=== PATIENT | female | born 1960 | race Two or more races ===

== ENCOUNTER 2018-03-31 20:42 | Emergency (ER) | payer OTHER ==
[2018-03-31] MEDS ORDERED: Sodium Chloride 0.9% 1,000 ML IV ONE (23:13)
[2018-03-31] MEDS ORDERED: Ondansetron 4 MG/2 ML SDV IVPUSH ONE (23:13)
--- NOTE | 2018-03-31 23:22 | EDM.PDOC ---
ED HPI GENERAL MEDICAL PROBLEM - General Chief Complaint: Gastrointestinal Problem Stated Complaint: VOMITTING/UPSET STOMACH Time Seen by Provider: 03/31/18 22:35 Source of Information: Reports: Patient History Limitations: Reports: No Limitations - History of Present Illness INITIAL COMMENTS - FREE TEXT/NARRATIVE: The patient states that she developed nausea and emesis around 14:00 this afternoon. Her most recent episode was around 19:30 this evening. No associated diarrhea. The patient reports central abdominal pain, only when she vomits. No recent fever. No recent urinary symptoms. No prior similar symptoms. The patient states that none of her close contacts is similarly ill. She states that she ate some macaroni this morning that had been left out overnight. No recent antibiotic. No recent travel. The patient is diabetic. She ordinarily checks her blood sugars 3 times a day, with normal Accu-Checks being 175-258. This morning's Accu-Check was 173, and 217 at 19:30 this evening. The patient's PCP is Kayce Preston. Abdominal Pain Score (Numeric/FACES): 4 - Related Data Allergies Allergy/AdvReac Type Severity Reaction Status Date / Time No Known Allergies Allergy Verified 03/31/18 23:16 Past Medical History Cardiovascular History: Reports: High Cholesterol, Hypertension Gastrointestinal History: Reports: GERD (untreated) Musculoskeletal History: Reports: Arthritis Neurological History: Reports: Neuropathy, Diabetic Endocrine/Metabolic History: Reports: Diabetes, Type II, Hyperthyroidism, Obesity/BMI 30+ - Past Surgical History HEENT Surgical History: Reports: Oral Surgery ([place] teeth extraction) GI Surgical History: Reports: Appendectomy, Cholecystectomy Social & Family History - Tobacco Use Smoking Status *Q: Current Some Day Smoker - Alcohol Use Alcohol Use History: No - Recreational Drug Use Recreational Drug Use: No - Living Situation & Occupation Living situation: Reports: , with Family (daughter + grandson + her daughter's boyfriend). 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 ED EXAM, GI/ABD - Physical Exam Exam: See Below Exam Limited By: No Limitations General Appearance: Alert, WD/WN, No Apparent Distress Eyes: Bilateral: Normal Appearance, EOMI Ears: Normal External Exam, Hearing Grossly Normal Nose: Normal Inspection, No Blood Throat/Mouth: Normal Inspection, Normal Lips, Normal Voice, No Airway Compromise Head: Atraumatic, Normocephalic Neck: Normal Inspection, Full Range of Motion Respiratory/Chest: No Respiratory Distress, Lungs Clear, Normal Breath Sounds, No Accessory Muscle Use Cardiovascular: Normal Peripheral Pulses, Regular Rate, Rhythm, No Gallop, No JVD, No Murmur, No Rub GI/Abdominal Exam: Normal Bowel Sounds, Soft, No Organomegaly, No Distention, No Abnormal Bruit, No Mass, Tender (Epigastric region only. Essentially nontender elsewhere.), Other (Obese) (Female) Exam: Deferred Rectal (Female) Exam: Deferred Back Exam: Normal Inspection, Full Range of Motion, NT Extremities: Normal Inspection, Normal Range of Motion, No Pedal Edema, Normal Capillary Refill Neurological: Alert, Oriented, Normal Cognition, No Motor/Sensory Deficits Psychiatric: Normal Affect Skin Exam: Warm, Dry, Intact, Normal Color, No Rash Course - Vital Signs Last Recorded V/S: Last Vital Signs Temp 36.9 C 03/31/18 21:07 Pulse 88 03/31/18 21:07 Resp 18 03/31/18 21:07 BP 139/72 03/31/18 21:07 Pulse Ox 98 03/31/18 21:07 - Orders/Labs/Meds Orders: Active Orders 24 hr Category Date Time Status Accu Check [Blood Glucose Check, Bedside] [RC] ONETIME Care 03/31/18 22:38 Active Abdomen Pelvis w Cont [CT] Stat Exams 04/01/18 01:03 Taken UA W/MICROSCOPIC [URIN] Stat Lab 03/31/18 23:25 Ordered Sodium Chloride 0.9% [Normal Saline] 1,000 ml Med 04/01/18 05:00 Active IV ASDIRECTED Medication Orders Sodium Chloride (Normal Saline) 1,000 mls @ 100 mls/hr IV ASDIRECTED CLAUDIA Last Admin: 04/01/18 05:13 Dose: 100 mls/hr Labs: Laboratory Tests 03/31/18 03/31/18 03/31/18 Range/Units 23:14 23:25 23:35 WBC 10.56 H (3.98-10.04) K/mm3 RBC 4.24 (3.98-5.22) M/mm3 Hgb 13.1 (11.2-15.7) gm/L Hct 39.1 (34.1-44.9) % MCV 92.2 (79.4-94.8) fl MCH 30.9 (25.6-32.2) pg MCHC 33.5 (32.2-35.5) g/dl RDW Std Deviation 42.3 (36.4-46.3) fL Plt Count 204 (182-369) K/mm3 MPV 11.1 (9.4-12.3) fl Neutrophils % (Manual) 74 H (40-60) % Band Neutrophils % 0 (0-10) % Lymphocytes % (Manual) 20 (20-40) % Atypical Lymphs % 0 % Monocytes % (Manual) 5 (2-10) % Eosinophils % (Manual) 0 L (0.7-5.8) % Basophils % (Manual) 1 (0.1-1.2) Platelet Estimate Adequate RBC Morph Comment Normal Sodium (136-145) mEq/L Potassium (3.5-5.1) mEq/L Chloride (98-107) mEq/L Carbon Dioxide (21-32) mEq/L Anion Gap (5-15) BUN (7-18) mg/dL Creatinine (0.55-1.02) mg/dL Est Cr Clr Drug Dosing mL/min Estimated GFR (MDRD) (>60) mL/min BUN/Creatinine Ratio (14-18) Glucose (74-106) mg/dL POC Glucose 229 H (70-105) mg/dL Calcium (8.5-10.1) mg/dL Magnesium (1.8-2.4) mg/dl Total Bilirubin (0.2-1.0) mg/dL AST (15-37) U/L ALT (14-59) U/L Alkaline Phosphatase (46-116) U/L Total Protein (6.4-8.2) g/dl Albumin (3.4-5.0) g/dl Globulin gm/dL Albumin/Globulin Ratio (1-2) Lipase (73-393) U/L Urine Color Yellow (Yellow) Urine Appearance Clear (Clear) Urine pH 7.0 (5.0-8.0) Ur Specific [place] 1.020 (1.005-1.030) Urine Protein Negative (Negative) Urine Glucose (UA) Negative (Negative) Urine Ketones Negative (Negative) Urine Occult Blood Negative (Negative) Urine Nitrite Negative (Negative) Urine Bilirubin Negative (Negative) Urine Urobilinogen 0.2 (0.2-1.0) Ur Leukocyte Esterase Negative (Negative) Urine RBC 0-5 (0-5) /hpf Urine WBC 0-5 (0-5) /hpf Ur Epithelial Cells 0-5 (0-5) /hpf Urine Bacteria Occasional (FEW) /hpf Urine Mucus Not seen (FEW) /hpf 03/31/18 Range/Units 23:35 WBC (3.98-10.04) K/mm3 RBC (3.98-5.22) M/mm3 Hgb (11.2-15.7) gm/L Hct (34.1-44.9) % MCV (79.4-94.8) fl MCH (25.6-32.2) pg MCHC (32.2-35.5) g/dl RDW Std Deviation (36.4-46.3) fL Plt Count (182-369) K/mm3 MPV (9.4-12.3) fl Neutrophils % (Manual) (40-60) % Band Neutrophils % (0-10) % Lymphocytes % (Manual) (20-40) % Atypical Lymphs % % Monocytes % (Manual) (2-10) % Eosinophils % (Manual) (0.7-5.8) % Basophils % (Manual) (0.1-1.2) Platelet Estimate RBC Morph Comment Sodium 140 (136-145) mEq/L Potassium 4.0 (3.5-5.1) mEq/L Chloride 106 (98-107) mEq/L Carbon Dioxide 26 (21-32) mEq/L Anion Gap 12.0 (5-15) BUN 12 (7-18) mg/dL Creatinine 0.7 (0.55-1.02) mg/dL Est Cr Clr Drug Dosing 78.83 mL/min Estimated GFR (MDRD) > 60 (>60) mL/min BUN/Creatinine Ratio 17.1 (14-18) Glucose 228 H (74-106) mg/dL POC Glucose (70-105) mg/dL Calcium 8.9 (8.5-10.1) mg/dL Magnesium 1.6 L (1.8-2.4) mg/dl Total Bilirubin 2.2 H (0.2-1.0) mg/dL AST 172 H (15-37) U/L ALT 115 H (14-59) U/L Alkaline Phosphatase 192 H (46-116) U/L Total Protein 7.6 (6.4-8.2) g/dl Albumin 2.7 L (3.4-5.0) g/dl Globulin 4.9 gm/dL Albumin/Globulin Ratio 0.6 L (1-2) Lipase 44065 H (73-393) U/L Urine Color (Yellow) Urine Appearance (Clear) Urine pH (5.0-8.0) Ur Specific [place] (1.005-1.030) Urine Protein (Negative) Urine Glucose (UA) (Negative) Urine Ketones (Negative) Urine Occult Blood (Negative) Urine Nitrite (Negative) Urine Bilirubin (Negative) Urine Urobilinogen (0.2-1.0) Ur Leukocyte Esterase (Negative) Urine RBC (0-5) /hpf Urine WBC (0-5) /hpf Ur Epithelial Cells (0-5) /hpf Urine Bacteria (FEW) /hpf Urine Mucus (FEW) /hpf Meds: Medications Generic Name Dose Route Start Last Admin Trade Name Festus PRN Reason Stop Dose Admin Sodium Chloride 1,000 mls @ 100 mls/hr 04/01/18 05:00 04/01/18 05:13 Normal Saline IV 100 mls/hr ASDIRECTED CLAUDIA Administration Discontinued Medications Generic Name Dose Route Start Last Admin Trade Name Festus PRN Reason Stop Dose Admin Diatrizoate Meglum/Diatrizoate Sod 90 ml 04/01/18 02:27 04/01/18 02:47 Gastrografin 37% PO 04/01/18 02:28 90 ml ONETIME ONE Administration Sodium Chloride 1,000 mls @ 999 mls/hr 03/31/18 23:13 03/31/18 23:37 Normal Saline IV 04/01/18 00:13 999 mls/hr ONETIME ONE Administration Magnesium Sulfate 2 gm/ Premix 50 mls @ 50 mls/hr 04/01/18 00:37 04/01/18 00: 42 IV 04/01/18 01:36 50 mls/hr ONETIME ONE Administration Iopamidol 125 ml 04/01/18 02:27 04/01/18 02:47 Isovue-300 (61%) IVPUSH 04/01/18 02:28 125 ml ONETIME ONE Administration Ondansetron HCl 4 mg 03/31/18 23:13 03/31/18 23:40 Zofran IVPUSH 03/31/18 23:14 4 mg ONETIME ONE Administration - Re-Assessments/Exams Free Text/Narrative Re-Assessment/Exam: 03/31/18 23:21 In addition to blood work, a urinalysis by straight catheter was ordered. I explained to the patient that straight catheterization was necessary in order to be able to collect a clean sample that I could interpret tonight. I explained that despite the patient not having urinary symptoms, diabetes can mask urinary symptoms, and that a UTI is a known cause of emesis, and therefore needs to be ruled out. The patient is morbidly obese and will not realistically be able to provide a clean catch urine sample. I was just notified by Ivis GOLDSTEIN that the patient is refusing straight catheterization. 04/01/18 01:04 Notified by Isabel GOLDSTEIN that she was notified by the lab that the patient's lipase is high, and requires dilution before the value can be obtained. I have ordered a CT of the abdomen and pelvis with oral and IV contrast to evaluate for pancreatitis. 04/01/18 02:49 The patient's lipase has returned as substantially elevated at 34,532. CT scan of the abdomen and pelvis is still pending. 04/01/18 03:37 CT of the abdomen and pelvis with oral and IV contrast is read by [facility] as: Acute pancreatitis changes noted mild peripancreatic phlegmon [sic] Status post cholecystectomy. No evidence for biliary ductal dilatation or choledocholithiasis Abnormal lymphadenopathy in the gerda hepatis as well as gastrohepatic node region Large complex pelvic cystic structure measuring 14 x 10 cm consistent with a complex right ovarian cyst. Ovarian neoplastic cyst should be considered. Correlation with CEA as well as CEA 125 levels is suggested 04/01/18 04:01 Test results discussed with the patient and her daughter. The patient states that she is aware that she has ovarian cyst, that she has had them twice before. I am concerned, however, about the abnormal lymphadenopathy reported on the CT scan. I am recommending that the patient be admitted for treatment of pancreatitis, and while admitted, further evaluate the ovarian mass with an ultrasound as well as CEA markers. The patient is agreeable. Case then discussed with Dr. Jama at 03:50. She is concerned that the phlegmon may require surgical attention. She agrees to admit the patient, if Dr. Franco is willing to be on surgical consult. Case then discussed with Dr. Franco at 03:54. He does not feel that surgery is necessary with this patient, however, because of the patient's comorbidities, he recommends transfer. 04/01/18 04:08 The above was discussed with the patient. She would prefer [facility]. 04/01/18 04:25 [facility] was contacted at 04:08. Unfortunately, their Med-Surg unit is completely full. Case discussed with [facility] at 04:12. Case then discussed with Dr. Guillermo, Hospitalist at [facility], at 04 :19. Like Dr. Franco, he does not see an indication for surgical intervention , and if no surgical intervention is required, he does not see why the patient' s pancreatitis cannot be managed like any other case of pancreatitis, here in [place]. He therefore declined to accept the patient. 04/01/18 04:[address] Jama at 04:26. She is concerned about the size of the ovarian cyst, and what might happen to the patient if it were to rupture. She feels strongly that the patient is not safe at this facility and recommends transfer. 04/01/18 04:41 Case discussed with [facility] at 04:38. Case then discussed with Dr. Guillermo at 04:40. He accepts the patient for transfer. The patient will be transferred by ground ambulance. Departure - Departure Time of Disposition: 04:43 Disposition: DC/Tfer to [facility] 02 Condition: Fair Clinical Impression: Pancreatitis, Hypomagnesemia, Ovarian mass, right, Abdominal lymphadenopathy, Hyperglycemia due to type 2 diabetes mellitus - Discharge Information - My Orders Last 24 Hours: My Active Orders 03/31/18 22:38 Accu Check [Blood Glucose Check, Bedside] [RC] ONETIME 03/31/18 23:25 UA W/MICROSCOPIC [URIN] Stat 04/01/18 01:03 Abdomen Pelvis w Cont [CT] Stat 04/01/18 05:00 Sodium Chloride 0.9% [Normal Saline] 1,000 ml IV ASDIRECTED - Assessment/Plan Last 24 Hours: My Active Orders 03/31/18 22:38 Accu Check [Blood Glucose Check, Bedside] [RC] ONETIME 03/31/18 23:25 UA W/MICROSCOPIC [URIN] Stat 04/01/18 01:03 Abdomen Pelvis w Cont [CT] Stat 04/01/18 05:00 Sodium Chloride 0.9% [Normal Saline] 1,000 ml IV ASDIRECTED
[2018-04-01] MEDS ORDERED: Magnesium Sulfate/Water 2 GM in Premix Bag 1 BAG IV ONE (00:37)
[2018-04-01] MEDS ORDERED: Diatrizoate Meglumine/Diatrizoate Sodium 37% 120 ML Bottle PO ONE (02:27)
[2018-04-01] MEDS ORDERED: Iopamidol 612 MG/ML 150 ML Bottle IVPUSH ONE (02:27)
[2018-04-01] MEDS ORDERED: Sodium Chloride 0.9% 1,000 ML IV SCH (05:00)
--- NOTE | 2018-04-01 11:42 | CT ---
CT abdomen and pelvis Technique: Multiple axial sections were obtained from above the dome of the diaphragm inferiorly through the pubic symphysis. Intravenous and oral contrast was utilized. Comparison: No prior studies available. Findings: Visualized lung bases show nothing acute. Liver shows no focal parenchymal abnormality. Spleen appears within normal limits. Adrenal glands show no nodule. Mild inflammatory change seen around the pancreas. Kidneys show symmetric contrast enhancement without hydronephrosis or mass. Aorta shows no aneurysmal dilatation. Several slightly prominent lymph nodes are seen near the gerad hepatis. Lymph node measures approximately 1.9 cm. No retroperitoneal adenopathy is seen. Fat-containing anterior abdominal wall hernia is noted. Complicated cystic structure seen within the pelvis measuring up to 13.4 cm. No free fluid is seen. Bone window setting show slight degenerative change within the spine. Delayed images show contrast within the ureters and bladder. Impression: 1. Mild inflammatory change around the pancreas. This is compatible with pancreatitis. 2. Several slightly prominent lymph nodes within the gerda hepatis, possibly enlarged from the pancreatitis. 3. Complicated cystic structure within the pelvis measuring up to 13.4 cm. This could represent a benign or malignant ovarian cyst. 4. No ascites is seen. Other incidental findings as noted above. Diagnostic code #9 I agree with preliminary report from [facility], finalized at 04/01/18, 4:29 AM Central Time
== END 2018-04-01 06:02 ==
LOC: JD.ED 20:42 → MERGE 20:42 → JD.ED 04-01 06:02
DX: K85.90 Acute pancreatitis without necrosis or infection, unspecified (principal); E11.65 Type 2 diabetes mellitus with hyperglycemia; E83.42 Hypomagnesemia; N83.9 Noninflammatory disorder of ovary, fallopian tube and broad ligament, unspecified; R59.1 Generalized enlarged lymph nodes; I10 Essential (primary) hypertension; E72.00 Disorders of amino-acid transport, unspecified; E03.9 Hypothyroidism, unspecified; F17.200 Nicotine dependence, unspecified, uncomplicated
CPT/HCPCS: 36415; 74177; 80053; 81001; 82962; 83690; 83735; 85025; 96361; 96365; 96375; 99285; J2405; J7040; Q9963; Q9967; 99284; J3475

== ENCOUNTER 2018-06-12 02:21 | Emergency (ER) | payer MEDICAID ==
--- NOTE | 2018-06-12 02:57 | EDM.PDOC ---
<Alyssa Mayberry - Last Filed: 06/12/18 05:46> ED HPI GENERAL MEDICAL PROBLEM - General Chief Complaint: Abdominal Pain Stated Complaint: ABDOMINAL PAIN Time Seen by Provider: 06/12/18 02:35 Source of Information: Reports: Patient History Limitations: Reports: No Limitations - History of Present Illness INITIAL COMMENTS - FREE TEXT/NARRATIVE: Patient is a 58-year-old female presents to emergency department complaining of right lower quadrant pain. Patient states she has a known history of ovarian mass on the right lower side that is large. She states though she's never had pain with that it was a incidental finding on the CT that she had previously for right upper quadrant and epigastric pain. So since the discovery of the mass she has had partial workup she is in the middle of having testing to complete a pre-surgical approval. Patient states this is the actual first time she's had pain in that area. She has no vaginal bleeding no hematuria. She does state that when she urinates she does not have complete emptying of her bladder. And takes a long time for her to go and stop and then go again. Onset: Sudden Duration: Hour(s): (Discomfort started around 9 to 11:00. By the time she arrived to the emergency department much the pain had gone.) Location: Reports: Abdomen Quality: Reports: Ache, Stabbing, Throbbing Severity: Moderate Improves with: Reports: Medication Worsens with: Reports: Movement Context: Reports: Other (See history of present illness) Associated Symptoms: Reports: No Other Symptoms. Denies: Malaise, Nausea/ Vomiting, Shortness of Breath Right Lower Abdomen Pain Score (Numeric/FACES): 4 - Related Data Allergies Allergy/AdvReac Type Severity Reaction Status Date / Time No Known Allergies Allergy Verified 03/31/18 23:16 Home Meds: Home Meds Calcium Carbonate/Vitamin D3 [Calcium 600 + Vit D 400 Softgl] 1 tab PO BID 06/12 [History] Cinnamon Bark [Cinnamon] 500 mg PO BID 06/12/18 [History] Cyanocobalamin (Vitamin B-12) [B-12] 1,000 mcg PO DAILY 06/12/18 [History] Ibuprofen [Motrin] 600 mg PO TID PRN 06/12/18 [History] Insulin Aspart [NovoLOG] 3 - 11 unit SQ ASDIRECTED 06/12/18 [History] Insulin Glargine,Hum.Rec.Anlog [Lantus Solostar] 30 unit SQ BID 06/12/18 [ History] Losartan [Cozaar] 50 mg PO DAILY 06/12/18 [History] Magnesium Oxide 800 mg PO DAILY 06/12/18 [History] Methimazole [Tapazole] 10 mg PO BID 06/12/18 [History] Pantoprazole Sodium [Protonix] 40 mg PO DAILY 06/12/18 [History] Propranolol [Inderal] 40 mg PO BID 06/12/18 [History] metFORMIN [Glucophage] 1,000 mg PO BID 06/12/18 [History] Past Medical History Cardiovascular History: Reports: High Cholesterol, Hypertension Gastrointestinal History: Reports: GERD Musculoskeletal History: Reports: Arthritis Neurological History: Reports: Neuropathy, Diabetic Endocrine/Metabolic History: Reports: Diabetes, Type II, Hyperthyroidism, Obesity/BMI 30+ - Past Surgical History HEENT Surgical History: Reports: Oral Surgery GI Surgical History: Reports: Appendectomy, Cholecystectomy Social & Family History - Family History Family Medical History: Noncontributory - Tobacco Use Smoking Status *Q: Current Some Day Smoker Years of Tobacco use: 15 Packs/Tins Daily: 0.1 - Caffeine Use Caffeine Use: Reports: Coffee, Tea - Recreational Drug Use Recreational Drug Use: No - Living Situation & Occupation Living situation: Reports: with Family, 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 Denies: Black Stool, Bloody Stool, Constipation, Diarrhea, Distension, Hematemesis, Hematochezia : Reports: Dysuria, Urinary Retention Musculoskeletal: Reports: No Symptoms Skin: Reports: No Symptoms Neurological: Reports: No Symptoms Psychiatric: Reports: No Symptoms Hematologic/Lymphatic: Reports: No Symptoms Immunologic: Reports: No Symptoms ED EXAM, GENERAL - Physical Exam Exam: See Below Exam Limited By: No Limitations General Appearance: Alert, WD/WN, No Apparent Distress Eye Exam: Bilateral Eye: EOMI, PERRL Ears: Normal External Exam, Normal Canal, Hearing Grossly Normal, Normal TMs Nose: Normal Inspection, Normal Mucosa, No Blood Throat/Mouth: Normal Inspection, Normal Lips, Normal Teeth, Normal Gums, Normal Oropharynx, Normal Voice, No Airway Compromise Head: Atraumatic, Normocephalic Neck: Normal Inspection, Supple, Non-Tender, Full Range of Motion Respiratory/Chest: No Respiratory Distress, Lungs Clear, Normal Breath Sounds, No Accessory Muscle Use, Chest Non-Tender Cardiovascular: Normal Peripheral Pulses, Regular Rate, Rhythm, No Edema, No Murmur, No Rub GI/Abdominal: Normal Bowel Sounds, Soft, Rebound, Tender, Abnormal Bowel Sounds. No: Guarding, Rigid Back Exam: Normal Inspection, Full Range of Motion, NT Extremities: Normal Inspection, Normal Range of Motion, Non-Tender, Normal Capillary Refill, No Pedal Edema Neurological: Alert, Oriented, CN II-XII Intact, Normal Cognition Psychiatric: Normal Affect, Normal Mood Skin Exam: Warm, Dry, Intact, Normal Color, No Rash Course - Vital Signs Last Recorded V/S: Last Vital Signs Temp 35.8 C 06/12/18 02:26 Pulse 64 06/12/18 02:26 Resp 16 06/12/18 02:26 BP 139/77 06/12/18 02:26 Pulse Ox 95 06/12/18 02:26 - Orders/Labs/Meds Orders: Active Orders 24 hr Category Date Time Status CULTURE URINE [RM] Stat Lab 06/12/18 03:13 Ordered Labs: Laboratory Tests 06/12/18 06/12/18 06/12/18 Range/Units 03:13 03:20 03:20 WBC 10.58 H (3.98-10.04) K/mm3 RBC 4.26 (3.98-5.22) M/mm3 Hgb 13.3 (11.2-15.7) gm/L Hct 39.0 (34.1-44.9) % MCV 91.5 (79.4-94.8) fl MCH 31.2 (25.6-32.2) pg MCHC 34.1 (32.2-35.5) g/dl RDW Std Deviation 40.2 (36.4-46.3) fL Plt Count 209 (182-369) K/mm3 MPV 10.7 (9.4-12.3) fl Neut % (Auto) 57.4 (34.0-71.1) % Lymph % (Auto) 31.5 (19.3-51.7) % Banks % (Auto) 8.2 (4.7-12.5) % Eos % (Auto) 2.3 (0.7-5.8) Baso % (Auto) 0.5 (0.1-1.2) % Neut # (Auto) 6.08 (1.56-6.13) K/mm3 Lymph # (Auto) 3.33 (1.18-3.74) K/mm3 Banks # (Auto) 0.87 H (0.24-0.36) K/mm3 Eos # (Auto) 0.24 (0.04-0.36) K/mm3 Baso # (Auto) 0.05 (0.01-0.08) K/mm3 Sodium 136 (136-145) mEq/L Potassium 4.2 (3.5-5.1) mEq/L Chloride 101 (98-107) mEq/L Carbon Dioxide 28 (21-32) mEq/L Anion Gap 11.2 (5-15) BUN 17 (7-18) mg/dL Creatinine 0.8 (0.55-1.02) mg/dL Est Cr Clr Drug Dosing 68.13 mL/min Estimated GFR (MDRD) > 60 (>60) mL/min BUN/Creatinine Ratio 21.3 H (14-18) Glucose 212 H (74-106) mg/dL Calcium 9.2 (8.5-10.1) mg/dL Total Bilirubin 0.6 (0.2-1.0) mg/dL AST 53 H (15-37) U/L ALT 60 H (14-59) U/L Alkaline Phosphatase 149 H (46-116) U/L Total Protein 8.1 (6.4-8.2) g/dl Albumin 3.0 L (3.4-5.0) g/dl Globulin 5.1 gm/dL Albumin/Globulin Ratio 0.6 L (1-2) Lipase (73-393) U/L Urine Color Yellow (Yellow) Urine Appearance Clear (Clear) Urine pH 6.5 (5.0-8.0) Ur Specific [place] 1.025 (1.005-1.030) Urine Protein Negative (Negative) Urine Glucose (UA) Trace H (Negative) Urine Ketones Negative (Negative) Urine Occult Blood Negative (Negative) Urine Nitrite Negative (Negative) Urine Bilirubin Negative (Negative) Urine Urobilinogen 1.0 (0.2-1.0) Ur Leukocyte Esterase Negative (Negative) Urine RBC 0-5 (0-5) /hpf Urine WBC 0-5 (0-5) /hpf Ur Epithelial Cells 0-5 (0-5) /hpf Urine Bacteria Occasional (FEW) /hpf Urine Mucus Few (FEW) /hpf 06/12/ Range/Units 03:20 WBC (3.98-10.04) K/mm3 RBC (3.98-5.22) M/mm3 Hgb (11.2-15.7) gm/L Hct (34.1-44.9) % MCV (79.4-94.8) fl MCH (25.6-32.2) pg MCHC (32.2-35.5) g/dl RDW Std Deviation (36.4-46.3) fL Plt Count (182-369) K/mm3 MPV (9.4-12.3) fl Neut % (Auto) (34.0-71.1) % Lymph % (Auto) (19.3-51.7) % Banks % (Auto) (4.7-12.5) % Eos % (Auto) (0.7-5.8) Baso % (Auto) (0.1-1.2) % Neut # (Auto) (1.56-6.13) K/mm3 Lymph # (Auto) (1.18-3.74) K/mm3 Banks # (Auto) (0.24-0.36) K/mm3 Eos # (Auto) (0.04-0.36) K/mm3 Baso # (Auto) (0.01-0.08) K/mm3 Sodium (136-145) mEq/L Potassium (3.5-5.1) mEq/L Chloride (98-107) mEq/L Carbon Dioxide (21-32) mEq/L Anion Gap (5-15) BUN (7-18) mg/dL Creatinine (0.55-1.02) mg/dL Est Cr Clr Drug Dosing mL/min Estimated GFR (MDRD) (>60) mL/min BUN/Creatinine Ratio (14-18) Glucose (74-106) mg/dL Calcium (8.5-10.1) mg/dL Total Bilirubin (0.2-1.0) mg/dL AST (15-37) U/L ALT (14-59) U/L Alkaline Phosphatase (46-116) U/L Total Protein (6.4-8.2) g/dl Albumin (3.4-5.0) g/dl Globulin gm/dL Albumin/Globulin Ratio (1-2) Lipase 133 (73-393) U/L Urine Color (Yellow) Urine Appearance (Clear) Urine pH (5.0-8.0) Ur Specific [place] (1.005-1.030) Urine Protein (Negative) Urine Glucose (UA) (Negative) Urine Ketones (Negative) Urine Occult Blood (Negative) Urine Nitrite (Negative) Urine Bilirubin (Negative) Urine Urobilinogen (0.2-1.0) Ur Leukocyte Esterase (Negative) Urine RBC (0-5) /hpf Urine WBC (0-5) /hpf Ur Epithelial Cells (0-5) /hpf Urine Bacteria (FEW) /hpf Urine Mucus (FEW) /hpf Meds: Medications Discontinued Medications Generic Name Dose Route Start Last Admin Trade Name Freq PRN Reason Stop Dose Admin Diatrizoate Meglum/Diatrizoate Sod 90 ml 06/12/18 05:36 06/12/18 05:54 Gastrografin 37% PO 06/12/18 05:37 90 ml ONETIME ONE Administration Sodium Chloride 500 mls @ 500 mls/hr 06/12/18 03:06 06/12/18 03:24 Normal Saline IV 06/12/18 04:05 500 mls/hr .BOLUS ONE Administration Sodium Chloride 500 mls @ 500 mls/hr 06/12/18 04:09 06/12/18 04:26 Normal Saline IV 06/12/18 05:08 500 mls/hr .BOLUS ONE Administration Iopamidol 125 ml 06/12/18 05:36 06/12/18 05:54 Isovue-300 (61%) IVPUSH 06/12/18 05:37 125 ml ONETIME ONE Administration Departure - Departure Disposition: Home, Self-Care 01 Condition: Good Clinical Impression: Ovarian mass, right Abdominal pain Qualifiers: Abdominal location: right lower quadrant Qualified Code(s): R10.31 - Right lower quadrant pain - Discharge Information Referrals: Darlene Preston NP [Primary Care Provider] - Forms: ED Department Discharge Additional Instructions: You were seen in the emergency room for lower right abdominal pain. Workup in the ER included blood work, urinalysis, and a CT scan of your abdomen and pelvis. Your bloodwork found your blood sugar to be elevated at 212, but was otherwise unremarkable. Your urinalysis was normal. You do not have a urinary tract infection. The CT scan of your abdomen and pelvis redemonstrated the mass in your lower right abdomen, unchanged. You already have a plan in place for surgical removal of the mass by Dr. Braden, but you first have to undergo a MRI, echocardiogram, and stress test on , 06/18/2018. Nothing in today's workup recommends that you deviate from that plan. Continue with those studies, as previously ordered. If any other problems, please do not hesitate to return to the ER. <Brad Branch - Last Filed: 06/12/18 10:11> Course - Re-Assessments/Exams Free Text/Narrative Re-Assessment/Exam: 06/12/18 09:07 CT of the abdomen and pelvis with oral and IV contrast is read by [facility] as: 1. Similar appearance of lobulated or 2 adjacent pelvic cysts as compared with , largest on the component measuring up to 11 cm. Stability over this time does not confirm benignity, however. 2. Persistent mild scattered colonic diverticulosis without evidence for diverticulitis. 3. Similar fatty, potentially cirrhotic liver with mild splenomegaly. 4. Additional similar findings as described. 06/12/18 09:48 The patient's lipase is normal at 133. As she does not have a pain profile consistent with pancreatitis, and her lipase is not 3 times or above the upper limit of normal, the patient does not meet diagnostic criteria for pancreatitis , even if the CT scan of her abdomen and pelvis suggests such. 06/12/18 10:01 CT of the abdomen and pelvis with oral and IV contrast is read by Dr. Hale as: 1. Reflux of contrast into the distal esophagus. 2. Other incidental findings. Nothing acute is seen. 3. Prior study showed changes of pancreatitis which are no longer seen. 4. Stable complicated cysts within the pelvis with differential as previously described. 5. Other incidental findings. The above test results were discussed with the patient. The patient states that the right lower quadrant mass was initially discovered in 2012. She states that she saw the [facility] Dr. Hernandez, she believes, in March, and that the patient was to then follow-up with Dr. Braden in order to have surgical excision of the mass. Prior to that, however, the patient is scheduled for a MRI, echocardiogram, and stress test this coming , 06/18/2018, in preparation for surgery. I do not see any findings on today's workup to recommend deviation from that plan. I will discharge the patient home. Departure - Departure Time of Disposition: 10:04 Condition: Good - Discharge Information *PRESCRIPTION DRUG MONITORING PROGRAM REVIEWED*: Not Applicable *COPY OF PRESCRIPTION DRUG MONITORING REPORT IN PATIENT AN: Not Applicable
[2018-06-12] MEDS ORDERED: Sodium Chloride 0.9% 500 ML IV ONE ×2 (03:06→04:09)
[2018-06-12] MEDS ORDERED: Iopamidol 612 MG/ML 150 ML Bottle IVPUSH ONE (05:36)
[2018-06-12] MEDS ORDERED: Diatrizoate Meglumine/Diatrizoate Sodium 37% 120 ML Bottle PO ONE (05:36)
--- NOTE | 2018-06-12 09:57 | CT ---
CT abdomen and pelvis Technique: Multiple axial sections were obtained from above the dome of the diaphragm inferiorly through the pubic symphysis. Intravenous and oral contrast was utilized. Delayed images were also obtained through the bladder. Comparison: Prior CT abdomen and pelvis exam of 04/01/18. Findings: Visualized lung bases show nothing acute. Contrast is seen within the distal esophagus compatible with reflux. Liver shows no focal parenchymal abnormality. Small calcification is seen anterior to the left lobe of the liver which is felt to be incidental. Previous inflammatory change around the pancreas shows resolution from previous exam. No findings of recurrent or acute pancreatitis. Small fatty structure is seen within the left adrenal gland felt to represent an incidental myelolipoma. Adrenal glands are otherwise unremarkable. Spleen appears within normal limits. Kidneys show symmetric contrast enhancement without hydronephrosis or mass. Aorta shows no aneurysmal dilatation. No retroperitoneal adenopathy or mesenteric abnormalities are seen. Fat-containing abdominal wall hernia is noted. Complicated cystic structure is again noted within the pelvis which appears to be due to 2 adjacent adnexal cysts showing some wall calcification. Both these structures together measure up to 13 cm. Differential as previously noted. No free fluid or inflammatory change is seen. Scattered diverticuli seen within the colon without diverticulitis. Impression: 1. Reflux of contrast into the distal esophagus. 2. Other incidental findings. Nothing acute is seen. 3. Prior study showed changes of pancreatitis which are no longer seen. 4. Stable complicated cysts within the pelvis with differential as previously described. 5. Other incidental findings. Diagnostic code #3 I agree with preliminary report issued by [facility] ([facility] report finalized on 06/12/18, 8:34 AM Central Time)
== END 2018-06-12 10:21 | disposition home or self-care (01) ==
LOC: JD.ED 02:21
DX: N83.9 Noninflammatory disorder of ovary, fallopian tube and broad ligament, unspecified (principal); E78.00 Pure hypercholesterolemia, unspecified; I10 Essential (primary) hypertension; K21.9 Gastro-esophageal reflux disease without esophagitis; E11.40 Type 2 diabetes mellitus with diabetic neuropathy, unspecified; F17.210 Nicotine dependence, cigarettes, uncomplicated; E05.90 Thyrotoxicosis, unspecified without thyrotoxic crisis or storm; Z79.899 Other long term (current) drug therapy; Z79.84 Long term (current) use of oral hypoglycemic drugs
CPT/HCPCS: 36415; 74177; 80053; 81001; 83690; 85025; 87086; 96360; 96361; 99284; J7040; Q9963; Q9967

== ENCOUNTER 2018-11-29 16:21 | Emergency (ER) | payer MEDICAID ==
--- NOTE | 2018-11-29 16:40 | EDM.PDOC ---
ED HPI GENERAL MEDICAL PROBLEM - General Chief Complaint: Upper Extremity Injury/Pain Stated Complaint: FINGER INJURY Time Seen by Provider: 11/29/18 16:29 Source of Information: Reports: Patient History Limitations: Reports: No Limitations - History of Present Illness INITIAL COMMENTS - FREE TEXT/NARRATIVE: Patient is a 58 y/o female who presents to the E.D. complaining of pain to the distal phalanx of the right 3rd finger. Patient slipped on the ice while walking on some steps. When she fell patient states she jammed her finger. Has noted difficult to bend at the DIP with swelling present. There is some slight bruising noted as well. She's been taking Tylenol and Motrin for pain. Has made a homemade splintto which she's been wearing as well. injury occurred November 27.she denies any pain to The remaining fingers, hand, wrist, forearm, elbow, upper arm, shoulder, andclavicle. Right 3-Middle finger Pain Score (Numeric/FACES): 2 - Related Data Allergies Allergy/AdvReac Type Severity Reaction Status Date / Time No Known Allergies Allergy Verified 11/29/18 17:20 Home Meds: Home Meds Calcium Carbonate/Vitamin D3 [Calcium 600 + Vit D 400 Softgl] 1 tab PO BID 06/12 [History] Cinnamon Bark [Cinnamon] 500 mg PO BID 06/12/18 [History] Cyanocobalamin (Vitamin B-12) [B-12] 1,000 mcg PO DAILY 06/12/18 [History] Ibuprofen [Motrin] 600 mg PO TID PRN 06/12/18 [History] Insulin Aspart [NovoLOG] 3 - 11 unit SQ ASDIRECTED 06/12/18 [History] Insulin Glargine,Hum.Rec.Anlog [Lantus Solostar] 30 unit SQ BID 06/12/18 [ History] Losartan [Cozaar] 50 mg PO DAILY 06/12/18 [History] Magnesium Oxide 800 mg PO DAILY 06/12/18 [History] Methimazole [Tapazole] 10 mg PO BID 06/12/18 [History] Pantoprazole Sodium [Protonix] 40 mg PO DAILY 06/12/18 [History] Propranolol [Inderal] 40 mg PO BID 06/12/18 [History] metFORMIN [Glucophage] 1,000 mg PO BID 06/12/18 [History] Past Medical History Cardiovascular History: Reports: High Cholesterol, Hypertension Gastrointestinal History: Reports: GERD Musculoskeletal History: Reports: Arthritis Neurological History: Reports: Neuropathy, Diabetic Endocrine/Metabolic History: Reports: Diabetes, Type II, Hyperthyroidism, Obesity/BMI 30+ - Past Surgical History HEENT Surgical History: Reports: Oral Surgery GI Surgical History: Reports: Appendectomy, Cholecystectomy Social & Family History - Family History Family Medical History: Noncontributory - Caffeine Use Caffeine Use: Reports: Coffee, Tea - Living Situation & Occupation Living situation: Reports: with Family, 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 ED EXAM, GENERAL - Physical Exam Exam: See Below Exam Limited By: No Limitations General Appearance: Alert, WD/WN, No Apparent Distress Ears: Hearing Grossly Normal Nose: Normal Inspection Throat/Mouth: Normal Inspection, Normal Oropharynx, Normal Voice, No Airway Compromise Head: Atraumatic, Normocephalic Neck: Normal Inspection, Supple Respiratory/Chest: No Respiratory Distress, No Accessory Muscle Use Cardiovascular: Normal Peripheral Pulses, Regular Rate, Rhythm Peripheral Pulses: 2+: Radial (R) Extremities: Other (On examination of the distal phalanx of the right third finger. Patient has pain to the DIP with some mild swelling and bruising. Unable to extend the distal phalanx at all. No sensory deficits noted. Able to flex the finger at all joints with no difficulties. No pain to the remaining fingers, hand, wrist. Patient has a mallet finger.) Neurological: Alert, Oriented, CN II-XII Intact, Normal Cognition, No Motor/ Sensory Deficits Psychiatric: Normal Affect, Normal Mood Skin Exam: Warm, Dry, Intact, Normal Color, No Rash ED TRAUMA EXTREMITY PROCEDURES - Splinting Right 3rd Digit Pre-Procedure NV Status: Normal Post-Procedure NV Status: Normal Splint Material: Aluminum-Foam Splint Design: Volar (With distal phalanx and hyper extended position.) Applied & Form Fitted By: Nurse Provider Post-Splint Application NV Check: NV Status Normal, Good Position Complications: No Course - Vital Signs Last Recorded V/S: Last Vital Signs Temp 96.5 F 11/29/18 16:29 Pulse 63 11/29/18 16:32 Resp 20 01/06/19 16:29 BP 145/80 H 11/29/18 16:32 Pulse Ox 95 11/29/18 16:29 - Re-Assessments/Exams Free Text/Narrative Re-Assessment/Exam: X-ray of the right third finger did not reveal any acute bony abnormalities. On examination patient has a mallet finger caused by. The extensor tendon of the distal phalanx. Lumina splint will be applied with distal phalanx placed in a hyperextended position. Discussed discharge instructions as documented. Departure - Departure Time of Disposition: 17:51 Disposition: Home, Self-Care 01 Condition: Good Clinical Impression: Mallet deformity of middle finger - Discharge Information Instructions: Mallet Finger Referrals: Fallon Us PA-C [Primary Care Provider] - [facility] [Outside] Forms: ED Department Discharge, ED Return to Work/School Form Additional Instructions: Leave the splint in place until evaluated by orthopedic hand surgeon this coming week for further evaluation. [facility] tomorrow for appointment time. Apply ice to affected area 3 times a day, 30 minutes in duration, do not apply ice directly on the skin. Refrain from any activities that require lifting with the affected extremity. May take Tylenol and ibuprofen in alternating fashion for pain. Elevate when able to reduce any swelling and pain. Return back to the ED for any new or worsening symptoms.
--- NOTE | 2018-11-30 06:38 | CR ---
Right third finger: Four views of the right third finger were obtained. Comparison: No prior study. Joint spaces are preserved. No fracture, dislocation or other bony abnormality is seen. Impression: 1. Nothing acute is appreciated on four-view right third finger exam. Diagnostic code #1
== END 2018-11-29 18:00 | disposition home or self-care (01) ==
LOC: JD.ED 16:21
DX: M20.011 Mallet finger of right finger(s) (principal); E78.00 Pure hypercholesterolemia, unspecified; I10 Essential (primary) hypertension; K21.9 Gastro-esophageal reflux disease without esophagitis; E11.40 Type 2 diabetes mellitus with diabetic neuropathy, unspecified; Z79.899 Other long term (current) drug therapy; Z79.4 Long term (current) use of insulin
CPT/HCPCS: 73140-26-F7; 73140-F7; 99282; 99283

== ENCOUNTER 2023-05-06 21:54 | Emergency (ER) | payer MEDICAID ==
[2023-05-06] MEDS ORDERED: Sodium Chloride 0.9% 10 ML Syringe FLUSH PRN (22:24)
[2023-05-06] MEDS ORDERED: Albuterol/Ipratropium 3.0-0.5 MG/3 ML Neb Soln NEB ONE (22:24)
[2023-05-06 23:00] LABS: HEMATOCRIT 38.9 % (34.1-44.9); HEMOGLOBIN 10.2 gm/dl (11.2-15.7); MEAN CORPUSCULAR HEMOGLOBIN 21.9 pg (25.6-32.2); MEAN CORPUSCULAR HGB CONC 26.2 g/dl (32.2-35.5); MEAN CORPUSCULAR VOLUME 83.7 fl (79.4-94.8); PLATELET COUNT,PLT 249 K/mm3 (182-369); RED BLOOD CELL COUNT 4.65 M/mm3 (3.98-5.22); WHITE BLOOD CELL COUNT,WBC 11.54 K/mm3 (3.98-10.04)
[2023-05-06 23:00] LABS: BASE EXCESS ARTERIAL 6.2 (-2-2.0); BICARBONATE,ARTERIAL 34.6 meq/L (22.0-26.0); O2 SATURATION ARTERIAL 93.7 % (96.0-97.0)
[2023-05-06 23:10] LABS: CORONAVIRUS COVID-19 NAA NEGATIVE (NEGATIVE); INFLUENZA A NAA NEGATIVE (NEGATIVE)
[2023-05-06 23:36] LABS: LACTIC ACID 1.2 mmol/L (0.4-2.0)
[2023-05-06 23:43] LABS: A/G RATIO 0.6 (1-2); ALBUMIN 2.8 g/dl (3.4-5.0); ANION GAP 5.1 (5-15); BILIRUBIN TOTAL 1.3 mg/dL (0.2-1.0); BUN/CREATININE RATIO 18.9 (14-18); C-REACTIVE PROTEIN 0.5 mg/dL (<1.0); CALCIUM 9.2 mg/dL (8.5-10.1); CREATININE 0.9 mg/dL (0.55-1.02); EST CRCL DRUG DOSING (CG) 59.12 mL/min; POTASSIUM,K 4.1 mEq/L (3.5-5.1); PROTEIN TOTAL,TP 7.9 g/dl (6.4-8.2)
[2023-05-06 23:52] LABS: BAND PERCENT MAN 0 % (0-10); BASOPHILS PERCENT MAN 0 (0.1-1.2); EOSINOPHILS PERCENT MAN 1 % (0.7-5.8); LYMPHOCYTES % ATYPICAL MANUAL 0 %; LYMPHOCYTES PERCENT MAN 21 % (20-40); MONOCYTES PERCENT MAN 13 % (2-10); MYELOCYTE PERCENT MAN 1
[2023-05-06 23:53] LABS: ANISOCYTOSIS 2+ MODERATE; POLYCHROMASIA 2+ MODERATE
[2023-05-06 23:54] LABS: HYPOCHROMASIA 2+ MODERATE; STOMATOCYTES 1+ SLIGHT
[2023-05-06 23:55] LABS: PLATELET COUNT ESTIMATE ADEQUATE
[2023-05-07] MEDS ORDERED: Aspirin 81 MG Tab.Chew PO ONE (00:11)
[2023-05-07] MEDS ORDERED: Iopamidol 755 Mg/ML 100 ML Bottle IVPUSH ONE (02:46)
[2023-05-07] MEDS ORDERED: Sodium Chloride 0.9% 100 ML IV SCH (03:00)
[2023-05-07] MEDS ORDERED: Furosemide 40 MG/4 ML VIAL IVPUSH ONE ×2 (03:19→05:39)
[2023-05-07 07:43] LABS: BASE EXCESS ARTERIAL 4.5 (-2-2.0); BICARBONATE,ARTERIAL 35.9 meq/L (22.0-26.0)
[2023-05-07 07:45] LABS: PCO2 ARTERIAL 111.8 mmHg (35.0-45.0)
[2023-05-07] MEDS ORDERED: Lactated Ringers 500 ML IV ONE (07:47)
[2023-05-07 08:21] LABS: BASOPHILS ABSOLUTE AUTO 0.02 K/mm3 (0.01-0.08); BASOPHILS PERCENT AUTO 0.2 % (0.1-1.2); EOSINOPHILS ABSOLUTE AUTO 0.05 K/mm3 (0.04-0.36); EOSINOPHILS PERCENT AUTO 0.5 (0.7-5.8); HEMATOCRIT 39.5 % (34.1-44.9); HEMOGLOBIN 9.8 gm/dl (11.2-15.7); IMMATURE GRAN ABSOLUTE AUTO 0.05 K/mm3 (0.00-0.10); IMMATURE GRAN PERCENT AUTO 0.5 % (<=1.0); LYMPHOCYTES ABSOLUTE AUTO 1.17 K/mm3 (1.18-3.74); LYMPHOCYTES PERCENT AUTO 11.8 % (19.3-51.7); MEAN CORPUSCULAR HEMOGLOBIN 21.7 pg (25.6-32.2); MEAN CORPUSCULAR HGB CONC 24.8 g/dl (32.2-35.5); MEAN PLATELET VOLUME 10.9 fl (9.4-12.3); MONOCYTES ABSOLUTE AUTO 0.89 K/mm3 (0.24-0.36); NEUTROPHILS ABSOLUTE AUTO 7.76 K/mm3 (1.56-6.13); PLATELET COUNT,PLT 239 K/mm3 (182-369); RED BLOOD CELL COUNT 4.52 M/mm3 (3.98-5.22); WHITE BLOOD CELL COUNT,WBC 9.94 K/mm3 (3.98-10.04)
[2023-05-07 08:39] LABS: MEAN CORPUSCULAR VOLUME 87.4 fl (79.4-94.8)
[2023-05-07 08:43] LABS: BICARBONATE,ARTERIAL 35.5 meq/L (22.0-26.0); O2 SATURATION ARTERIAL 90.8 % (96.0-97.0)
[2023-05-07 08:44] LABS: PCO2 ARTERIAL 113.7 mmHg (35.0-45.0)
[2023-05-07 08:47] LABS: A/G RATIO 0.6 (1-2); ALBUMIN 2.6 g/dl (3.4-5.0); ANION GAP 6.6 (5-15); BILIRUBIN TOTAL 1.1 mg/dL (0.2-1.0); CALCIUM 8.8 mg/dL (8.5-10.1); EST CRCL DRUG DOSING (CG) 53.2 mL/min; POTASSIUM,K 4.6 mEq/L (3.5-5.1); PROTEIN TOTAL,TP 7.3 g/dl (6.4-8.2)
[2023-05-07] MEDS ORDERED: Succinylcholine 200 MG/10 ML MDV ONE (09:00)
[2023-05-07] MEDS ORDERED: ePHEDrine 50 MG/ML SDV ONE (09:00)
[2023-05-07] MEDS ORDERED: methylPREDNISolone Sodium Succinate 125 MG/2 ML SDV IVPUSH SCH (09:00)
[2023-05-07] MEDS ORDERED: Propofol 200 MG/20 ML SDV ONE (09:00)
[2023-05-07 09:36] LABS: SLIDE REVIEW ABNORMAL SMEAR
[2023-05-07] MEDS ORDERED: Midazolam 50 MG in Sodium Chloride 0.9% 40 ML IV SCH (09:45)
[2023-05-07] MEDS ORDERED: Midazolam 1 MG/ML 2 ML SDV ONE ×2 (09:46→10:00)
[2023-05-07] MEDS ORDERED: fentaNYL 2,500 MCG in Sodium Chloride 0.9% 200 ML IV SCH (10:00)
[2023-05-07] MEDS ORDERED: fentaNYL 100 MCG/2 ML SDV ONE (10:01)
== END 2023-05-07 10:42 ==
LOC: JD.ED 21:54
DX: J96.00 Acute respiratory failure, unspecified whether with hypoxia or hypercapnia (principal); I10 Essential (primary) hypertension; K21.9 Gastro-esophageal reflux disease without esophagitis; E11.9 Type 2 diabetes mellitus without complications; E66.9 Obesity, unspecified; Z79.84 Long term (current) use of oral hypoglycemic drugs; Z20.822 Contact with and (suspected) exposure to COVID-19
CPT/HCPCS: 0240U; 31500; 36415; 36600; 71045; 71275; 80053; 82803; 83605; 83880; 84145; 84443; 84484; 85007; 85025; 85027; 85379; 86140; 87040; 93005; 94640; 94660; 96361; 96374; 96375; 96376; 99291; J0330; J1940; J2250; J2704; J2930; J3010; J3490; J7050; J7120; Q9967; 93010; J7620-GY